=== PATIENT | female | born 1985 | race Caucasian/White ===

== ENCOUNTER 2019-11-28 08:57 | Day surgery (SDC) | payer MEDICARE, BC ==
[~2019-11-28] VITALS: Ht 166.4 cm; Wt 120.2 kg
[~2019-11-28 08:57] MED LIST: ACYC800T PO; BACT400T PO; CELE1CAP4 PO; CETI10CH PO; D31000TA2 PO; KEYT1INJ IV; LIDOCAINE 2% 100MG/5ML SDV (FOR ANES.) As Ordered ONE; MAG100TA PO; METO25TA4 PO; MIDAZOLAM INJ 2MG/2ML VIAL (J2250 PER 1MG) As Ordered ONE; ONDANSETRON 4MG/2ML VIAL As Ordered ONE; OXYC-404 PO; OXYC5CAP56 PO; PANT20TA6 PO; PRED10PA PO; ROCURONIUM BROMIDE 50 MG/5 ML VIAL As Ordered ONE; VITA50005 PO; dexameTHASONE 4 MG/ML 1ML VIAL (J1100 PER 1MG) As Ordered ONE; fentaNYL 100 MCG/2 ML INJECTION (J3010) As Ordered ONE; propofoL 200 MG/20 ML VIAL As Ordered ONE
[2019-11-28] MEDS ORDERED: ROCURONIUM BROMIDE 50 MG/5 ML VIAL As Ordered ONE (09:15)
[2019-11-28] MEDS ORDERED: ALBUTEROL SULFATE 2.5 MG/0.5 ML INH NEB SOLN INH ONE (09:45)
[2019-11-28] MEDS ORDERED: LIDOCAINE 4% INJ 5ML AMP INH ONE (09:45)
[2019-11-28] MEDS ORDERED: THROMBIN SOLN 5,000 UNITS VIAL As Ordered ONE (09:49)
[2019-11-28] MEDS ORDERED: CETACAINE SPRAY 5GM As Ordered ONE (09:49)
[2019-11-28] MEDS ORDERED: EPINEPHrine 1MG/10ML SYRINGE 1.5IN As Ordered ONE (09:49)
[2019-11-28] MEDS ORDERED: LIDOCAINE VISCOUS 2% SOLN 15ML UDC As Ordered ONE (09:50)
[2019-11-28] MEDS ORDERED: LIDOCAINE 4% TOPICAL SOLN 50 ML BTL As Ordered ONE (09:50)
[2019-11-28] MEDS ORDERED: LIDOCAINE 1% SDV 30ML VIAL As Ordered ONE (09:50)
[2019-11-28] MEDS ORDERED: METOCLOPRAMIDE INJ 10MG/2ML VIAL (J2765 PER 1) As Ordered ONE (10:43)
[2019-11-28] MEDS ORDERED: SUGAMMADEX SODIUM 500 MG/5 ML VIAL (BRIDION) As Ordered ONE (10:43)
[2019-11-28 11:56] LABS: APPEARANCE CLOUDY (CLEAR); COLOR RED (COLORLESS)
[2019-11-28] MEDS ORDERED: ONDANSETRON 4MG/2ML VIAL IV PRN (12:00)
[2019-11-28] MEDS ORDERED: MEPERIDINE INJ 25 MG/ML VIAL (J2175) IV PRN (12:00)
[2019-11-28] MEDS ORDERED: METOCLOPRAMIDE INJ 10MG/2ML VIAL (J2765 PER 1) IV PRN (12:00)
[2019-11-28] MEDS ORDERED: LR 1,000 ML IV SCH (12:00)
[2019-11-28] MEDS ORDERED: oxyCODONE 5MG TAB PO PRN (12:00)
[2019-11-28] MEDS ORDERED: fentaNYL 100 MCG/2 ML INJECTION (J3010) IV PRN (12:00)
[2019-11-28 12:15] VITALS: BP 139/88
[2019-11-29 09:26] LABS: MONOCYTES/MACROPHAGES, BAL 20 %; SOURCE 240069
--- NOTE | 2019-12-12 12:23 | RO ---
DATE OF OPERATION: 11/28/2019 PREOPERATIVE DIAGNOSIS: Abnormal chest CT, right middle lobe/right upper lobe abnormality. POSTOPERATIVE DIAGNOSIS: Abnormal chest CT, right middle lobe/right upper lobe abnormality. PROCEDURE: Bronchoscopy with [place] navigation. FINDINGS: Scarring in the left upper lobe consistent with radiation changes. SURGEON: Jose E Pena DO ASSISTANTS: Jaden Elias DO and Malgorzata Trevizo MD SPECIMENS OBTAINED: 1. Right lower lobe Cytobrush. 2. Right middle lobe Microbrush. 3. Right middle lobe transbronchial biopsies. 4. Right middle lobe bronchoalveolar lavage. ANESTHESIA: General; please refer to the records for details. ESTIMATED BLOOD LOSS: Less than 5 mL; none replaced. COMPLICATIONS: No complications. DRAINS: None. DESCRIPTION OF PROCEDURE: After informed consent was reviewed with the patient in the preoperative area, she was taken to OR #8. General anesthesia was initiated with an 8.5 endotracheal tube. Case was then handed over to me. A timeout was performed with two patient identifiers, identifying correct site and correct procedure. Name and date of were also correlated with the [place] navigation pre-formatted CT imaging. The 1T190 bronchoscope was inserted into the airway. The trachea was deviated to the left. Emani was slightly splayed. Right and left mainstem bronchi were normal. RB1 through 10 was inspected with minimal amounts of mucus without endobronchial lesions. LB1 through 5 was abnormal with narrowed airways; appeared to be scar-like without endobronchial lesions. Most airways were patent. LB6 through 10 were patent without endobronchial lesions. The bronchoscope was retracted and the robotic [place] bronchoscope was inserted. Automatic registration performed. Target #1 in the right middle lobe was easily navigated to. Minor adjustments under fluoroscopy. Biopsies were taken in the form of cytology brushing, microbrushing, transbronchial biopsies and bronchoalveolar lavage. The bronchoalveolar lavage was sent for Gram stain and culture, AFB, fungal and cell count. On-site cytology did not suggest any evidence of lymphoma; therefore, nothing was sent for RPMI. There were no significant lymphocytes seen. After adequate biopsy, robotic bronchoscope was removed; 1T190 bronchoscopy was reinserted to ensure hemostasis. All areas were cleared. Hemostasis was ensured and the i90 bronchoscope was removed. All post procedure chest x-rays pending. No observed complications at this point in time. [facility]
--- NOTE | 2019-12-12 12:25 | REP ---
PORTABLE CHEST X-RAY CLINICAL: Postoperative evaluation. COMPARISON: None. FINDINGS: There is considerable elevation to the left hemidiaphragm. Areas of opacity involving the visualized left hilar region, as well as the right mid lung zone are suggested. No pneumothorax. IMPRESSION: Extremely limited examination. Cannot exclude areas of opacity at the left hilum and right mid lung zone. No pneumothorax. MTDD
--- NOTE | 2019-12-20 10:39 | ECGEPIP ---
[facility] Test Date: 2019-11-28 Pat Name: BUSHRA PALAFOX Department: Room: - Gender: Female Weight Loss Consultant: FERNANDO : 1985 Requested By: RYAN Sparks Order Number: [id number] Reading MD: Jaden Stevenson Measurements Intervals [place] Rate: 87 P: 30 AL: 144 QRS: -24 QRSD: 87 T: 105 QT: 376 QTc: 454 Interpretive Statements SINUS RHYTHM INFERIOR MYOCARDIAL INFARCTION, OLD WITH POSTERIOR EXTENSION MODERATE T-WAVE ABNORMALITY, CONSIDER LATERAL ISCHEMIA ABNORMAL ECG SEE SCANNED DOWNTIME REPORT
== END 2019-11-28 12:40 | disposition home or self-care (01) ==
LOC: M SDC 08:57
PROVIDERS: ATTEND Internal Medicine Pulmonary Disease
DX: J84.89 Other specified interstitial pulmonary diseases (principal); I10 Essential (primary) hypertension; E28.2 Polycystic ovarian syndrome; Z79.899 Other long term (current) drug therapy; Z79.52 Long term (current) use of systemic steroids; G47.33 Obstructive sleep apnea (adult) (pediatric); Z85.79 Personal history of other malignant neoplasms of lymphoid, hematopoietic and related tissues; Z92.3 Personal history of irradiation
CPT/HCPCS: 31623; 31624; 31627; 31628; 71045; 76000; 81025; 87070; 87071; 87102; 87116; 87205; 87206; 88104; 88305; 89051; 93005; J1100; J2250; J2405; J2765; J3010; S2900

== ENCOUNTER → 2021-02-18 | Outpatient (CLI) | payer MEDICARE ==
[~2021-02-18] MED LIST changes: +ACYC1TAB4 PO; -ACYC800T PO; +ERGO500029 PO; -LIDOCAINE 2% 100MG/5ML SDV (FOR ANES.) As Ordered ONE; -MIDAZOLAM INJ 2MG/2ML VIAL (J2250 PER 1MG) As Ordered ONE; -ONDANSETRON 4MG/2ML VIAL As Ordered ONE; -ROCURONIUM BROMIDE 50 MG/5 ML VIAL As Ordered ONE; -VITA50005 PO; -dexameTHASONE 4 MG/ML 1ML VIAL (J1100 PER 1MG) As Ordered ONE; -fentaNYL 100 MCG/2 ML INJECTION (J3010) As Ordered ONE; -propofoL 200 MG/20 ML VIAL As Ordered ONE
== END ==
LOC: M PAIN 14:00
PROVIDERS: ATTEND Nurse Practitioner Family
DX: G89.29 Other chronic pain (principal); R07.89 Other chest pain; G47.33 Obstructive sleep apnea (adult) (pediatric); E28.2 Polycystic ovarian syndrome; I87.1 Compression of vein; Z85.79 Personal history of other malignant neoplasms of lymphoid, hematopoietic and related tissues; Z79.891 Long term (current) use of opiate analgesic; Z79.899 Other long term (current) drug therapy; Z94.84 Stem cells transplant status

== ENCOUNTER → 2022-09-21 | Outpatient (CLI) | payer MEDICARE ==
[~2022-09-21] MED LIST changes: -D31000TA2 PO; -OXYC-404 PO; +OXYC20TA64 PO; +VITA100093 PO
== END ==
LOC: M SLEEP 20:00
PROVIDERS: ATTEND Internal Medicine Pulmonary Disease
DX: G47.33 Obstructive sleep apnea (adult) (pediatric) (principal)